=== PATIENT | female | born 1955 | race Caucasian/White ===

== ENCOUNTER 2021-04-03 06:09 | Outpatient (REF) | payer OTHER, SELFPAY ==
[2021-04-03 12:04] LABS: Cholesterol 198 mg/dL; Glucose Fasting 103 mg/dL (60-99); HDL Cholesterol 92 mg/dL; LDL Cholesterol Calculated 97 mg/dl; Triglycerides 48 mg/dL
[2021-04-03 12:09] LABS: Vitamin D 25-OH Total 53.4 ng/mL (>30)
== END 2021-04-03 06:10 | disposition home or self-care (01) ==
LOC: HO.HMGCLDS 06:09
PROVIDERS: PCP Internal Medicine; Visit Provider Internal Medicine
DX: Z78.0 Asymptomatic menopausal state (principal); Z00.00 Encounter for general adult medical examination without abnormal findings
CPT/HCPCS: 36415; 80061; 82306; 82947

== ENCOUNTER 2022-04-07 06:16 | Outpatient (REF) | payer BC, SELFPAY ==
[2022-04-07 11:35] LABS: MANUAL DIFF FLAG NO
[2022-04-07 11:44] LABS: Basophils Percent Auto 0.6 % (0-2); Eosinophils Absolute Auto 0.1 X10*3/uL (0.0-0.4); Eosinophils Percent Auto 2.7 % (0-4); Hematocrit 40.3 % (37.0-47.0); Hemoglobin 13.4 g/dl (12.0-16.0); Imm Gran Abs Auto 0.01 X10*3/uL (0.00-0.03); Imm Gran Pct Auto 0.2 % (0.0-0.4); Lymphocytes Absolute Auto 2.1 X10*3/uL (1.2-4.9); Lymphocytes Percent Auto 40.5 % (20-40); Mean Corpuscular HGB Conc 33.3 g/dl (31.0-35.0); Mean Corpuscular Hemoglobin 28.2 pg (27.0-33.0); Mean Corpuscular Volume 84.7 fL (80.0-98.0); Monocytes Absolute Auto 0.4 X10*3/uL (0.1-1.2); Monocytes Percent Auto 7.8 % (2-11); Neutrophils Absolute Auto 2.5 x10*3/uL (2.0-8.3); Neutrophils Percent Auto 48.2 % (45-73); Platelet Count 240 X10*3/uL (160-400); Red Blood Count 4.76 X10*6/uL (4.20-5.50); Red Cell Distribution Width 13.5 % (11.0-16.0); White Blood Count 5.1 X10*3/uL (4.8-10.8)
[2022-04-07 12:14] LABS: Alanine Aminotransferase 20 U/L (0-31); Anion Gap 11 (12-20); Aspartate Amino Transferase 22 U/L (5-31); Blood Urea Nitrogen 19 mg/dL (9-16); Calcium 9.2 mg/dL (8.4-10.2); Carbon Dioxide 26 mmol/L (22-29); Chloride 107 mmol/L (96-108); Cholesterol 193 mg/dL; Estimated Glomerular Filt Rate > 60; Glucose Fasting 104 mg/dL (60-99); HDL Cholesterol 76 mg/dL; LDL Cholesterol Calculated 105 mg/dl; Potassium 4.1 mmol/L (3.3-5.1); Sodium 140 mmol/L (135-145); Triglycerides 60 mg/dL
== END 2022-04-07 06:17 | disposition home or self-care (01) ==
LOC: HO.HMGCLDS 06:16
PROVIDERS: Visit Provider Internal Medicine
DX: Z00.01 Encounter for general adult medical examination with abnormal findings (principal); M85.89 Other specified disorders of bone density and structure, multiple sites; R73.01 Impaired fasting glucose; Z78.0 Asymptomatic menopausal state
CPT/HCPCS: 36415; 80048; 80061; 82306; 84450; 84460; 85025

== ENCOUNTER 2023-05-13 07:23 | Outpatient (REF) | payer MEDICARE, SELFPAY ==
[2023-05-13 12:00] LABS: Estimated Average Glucose 108 mg/dL; Hemoglobin A1c % 5.4 %
[2023-05-13 12:20] LABS: Cholesterol 193 mg/dL; Glucose Fasting 107 mg/dL (60-99); HDL Cholesterol 77 mg/dL; LDL Cholesterol Calculated 103 mg/dl; Triglycerides 66 mg/dL
[2023-05-13 12:24] LABS: Vitamin D 25-OH Total 96.5 ng/mL (>30)
== END 2023-05-13 07:24 | disposition home or self-care (01) ==
LOC: HO.HMGCLDS 07:23
PROVIDERS: PCP Internal Medicine; Visit Provider Internal Medicine
DX: Z00.01 Encounter for general adult medical examination with abnormal findings (principal); M85.89 Other specified disorders of bone density and structure, multiple sites; R73.01 Impaired fasting glucose; Z78.0 Asymptomatic menopausal state
CPT/HCPCS: 36415; 80061; 82306; 82947; 83036

== ENCOUNTER 2024-07-12 07:41 | Outpatient (REF) | payer BC, SELFPAY ==
[2024-07-12 10:21] LABS: B Type Natriuretic Peptide < 10 pg/mL (<100)
[2024-07-12 10:27] LABS: Estimated Average Glucose 111 mg/dL; Hemoglobin A1C 129.4859 umol/L; Hemoglobin A1c % 5.5 % (<6.0); Total Hemoglobin (HGBA1C) 3494.1115 umol/L
[2024-07-12 10:39] LABS: Alanine Aminotransferase 24 U/L (0-31); Aspartate Amino Transferase 22 U/L (5-31); Cholesterol 187 mg/dL (<200); HDL Cholesterol 76 mg/dL (>40); LDL Cholesterol Calculated 96 mg/dL (<100); Triglycerides 75 mg/dL (<150); Vitamin D 25-OH Total 69.9 ng/mL (>30)
== END 2024-07-12 07:42 | disposition home or self-care (01) ==
LOC: HO.HMGCLDS 07:41
PROVIDERS: PCP Internal Medicine; Visit Provider Internal Medicine
DX: R73.01 Impaired fasting glucose (principal); M85.89 Other specified disorders of bone density and structure, multiple sites; Z13.220 Encounter for screening for lipoid disorders; Z13.1 Encounter for screening for diabetes mellitus
CPT/HCPCS: 36415; 80061; 82306; 83036; 83880; 84450; 84460

== ENCOUNTER 2024-07-28 08:40 | Outpatient (AMB) | payer BC, SELFPAY ==
--- NOTE | 2024-07-28 09:25 | A.OFFPC_ITS ---
Vital Signs 07/28/24 09:29 Height 5 ft 6 in Weight 193 lb BMI 31.1 BP 130/72 Blood Pressure Location Lt brachial Position Sitting Pulse 83 Pulse Source Pulse Oximeter Pulse Oximetry (%) 99 Oxygen Delivery Method Room Air Intake Visit Reasons: PE Intake Note: Patient is here today for a physical. Mammo 07/15/24, Colonoscopy 12/16/22, Flu already done. Contract Preparer Required: No Time Study Clerk: Not Required per policy Accompanied by: Self / Same As Patient Allergies Sulfa (Sulfonamide Antibiotics) Allergy (Unknown, Verified 07/28/24 10:12) burning sensation in mouth Medication List - Last Reconciled 07/28/24 by Naina Alvarez MD calcium carbonate (Tums) 300 mg PO BID xwbupdfducbr-Lv-vxyd-minerals (Multiple Vitamin, Womens tablet) tabs PO Tobacco use date assessed: 07/28/24 Fall risk assessment: No Falls in past year Last assessed Fall Risk: 07/28/24 Dental Screening Dental Screen Date: 07/28/24 Did you have a dental visit in the last 12 months?: Yes Did you have a dental problem in the last 6 months where you did not have access to dental care?: No Was dental information given to patient?: Patient has dentist HPI PE HPI Details 68 year old lady with history of impaire d fasting glucose, osteopenia of multiple sites, here for her physical exam. She is up-to-date with her mammogram done 07/15/24 benign findings, had her Colonoscopy 12/16/[address] Kong, with removal of a polyp and presence of internal hemorrhoids seen. She sees [facility], Dr. Weller for her routine Pap and pelvic exam, last Pap smear was done earlier this year with normal findings. 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 Osteopenia of multiple sites Cervical radiculopathy Surgical History History of dental surgery S/P thyroid biopsy Social History Housing: House Alcohol intake: current Alcohol intake frequency: holidays/special occasions only Patient Tobacco Use Status: Never used Tobacco e-Cigarette/Vaping Use: Never Used Second Hand Smoke Exposure: No service: No Current occupational status: employed Cognitive needs: No Hearing needs: No Vision needs: No Female Reproductive History Menstrual Date of last pap smear: 10/14/23 History of abnormal pap smear: No Other: sees Dr Weller Questionnaire PHQ-9 Over the last 2 weeks, how often have you been bothered by any of the following problems? 1. Little interest or pleasure in doing things: not at all 2. Feeling down, depressed, or hopeless: not at all 3. Trouble falling or staying asleep, or sleeping too much: not at all 4. Feeling tired or having little energy: not at all 5. Poor appetite or overeating: not at all 6. Feeling bad about yourself - or that you are a failure or have let yourself or your family down: not at all 7. Trouble concentrating on things, such as reading the newspaper or watching television: not at all 8. Moving or speaking so slowly that other people could have noticed. Or the opposite - being so fidgety or restless that you have been moving around a lot more than usual: not at all 9. Thoughts that you would be better off or of hurting yourself in some way: not at all Total score: 0 Depression Screening Interpretation: Negative Depression Screening Done: Yes 45683 - PHQ-9 Billing: Yes Source: Developed by Drs. Yunier Cary, Adelaida Min, Kenrick Ingram and colleagues, with an educational devon from [employer]. Thrive Questionnaire Date Thrive assessed: 07/28/24 I am a: Patient What is your living situation today?: I have a steady place to live Within the past 12 months, did the food you bought not last and you didn't have the money to get more?: Never true Within the past 12 months, did you worry whether your food would run out before you got money to buy more?: Never true Do you have trouble paying for medicines?: No Do you have trouble getting transportation to medical appointments?: No Do you have trouble paying your heating and electricity bill?: No Do you have trouble taking care of your child, family member or friend?: No Do you have trouble with day-to-day activities such as bathing, preparing meals, shopping, managing finances, etc.?: No Are you currently unemployed and looking for a job?: No Are you interested in more education?: No Please select the resources that you would like help with: None Currently or been in a relationship where the following occur: No concerns reported THRIVE Score: 0 AUDIT C Alcohol Use Questionnaire (AUDIT-C) 1. How often do you have a drink containing alcohol?: Monthly or less 2. How many drinks containing alcohol do you have on a typical day when you are drinking?: 1 or 2 3. How often do you have six or more drinks on one occasion?: Never Total Score: 1 LEANDRA-7 AMB Questionnaire LEANDRA-7 Date LEANDRA - 7 assessed: 07/28/24 Feeling nervous, anxious, or on edge: 0 = Not at all Not being able to stop or control worryin = Not at all Worrying too much about different things: 0 = Not at all Trouble relaxin = Not at all Being so restless that it is hard to sit still: 0 = Not at all Becoming easily annoyed or irritable: 0 = Not at all Feeling afraid as if something awful might happen: 0 = Not at all Total LEANDRA-7 score (0-4 normal; 5-9 mild; 10-14 moderate; 15-21 severe): 0 Source: Developed by Drs. Yunier Cary, Adelaida Min, Kenrick Ingram and colleagues, with an educational devon from [employer]. LEANDRA-7 Assessment Billing LEANDRA-7 Assessment Tool: LEANDRA-7 Assessment 84645 Review of Systems Const Denies body aches, Denies fatigue, Denies fever(s), Denies headache(s) and Denies weakness Eyes Details: sees Dr Viveros Denies change in vision, Denies eye discharge and Denies itchy eyes ENT Details: slight tenderness over left TMJ Reports Normal hearing present, Denies dizziness, Denies headache(s), Denies nasal congestion, Denies nasal discharge and Denies sore throat Card Denies chest pain, Denies lightheadedness, Denies palpitations and Denies dyspnea Resp Denies chest congestion, Denies cough, Denies dyspnea and Denies wheezing GI Denies abdominal pain, Denies change in bowel habits and Denies heartburn Denies hematuria, Denies urinary frequency, Denies dysuria and Denies urinary urgency Musc Reports no additional complaints Skin/Breast Denies breast pain, Denies breast mass, Denies lesions and Denies rash Neuro Reports Normal hearing present, Denies dizziness, Denies headache(s), Denies Sensory deficit (Neuro) and Denies weakness Psych Reports no additional complaints Endo Denies fatigue, Denies polydipsia, Denies polyuria and Denies palpitations Philip/Lymph Denies easy bruising Aller/Immun Denies itchy eyes, Denies seasonal rhinorrhea and Denies wheezing Physical exam (Primary Care) Vital Signs: Last Vital Signs Pulse 83 07/28/24 09:29 BP 130/72 07/28/24 09:29 Pulse Ox 99 07/28/24 09:29 Oxygen Delivery Method Room Air 07/28/24 09:29 BMI result Body Mass Index 31.1 Tobacco/Smoking Status: Tobacco use Status Tobacco use date assessed 07/28/24 07/28/24 09:38 Patient Tobacco Use Status Never used Tobacco 07/28/24 09:38 e-Cigarette/Vaping Use Never Used 07/28/24 09:38 PHQ-9: PHQ-9 Score PHQ-9: Total score 0 07/28/24 10:16 Depression Screening Interpretation: Negative Thrive Assessment: Date of Thrive Assessment Date Thrive assessed 07/28/24 07/28/24 09:27 Currently or been in a relationship where the following occur: No concerns reported Const General: cooperative, healthy appearing, no acute distress and alert Orientation/consciousness: patient oriented x3 Limitations: no limitations [facility] Head: Yes normal to inspection and Yes normocephalic Ears: hearing grossly normal bilaterally, external ears normal, TM's normal bilaterally and EAC's normal General nose exam: Normal external nose present and No nasal discharge present Face and sinus: Yes normal facial exam, Yes sinuses nontender and Yes face symmetric Mouth: Normal oral and palatal mucosa present, lip normal, tongue normal, oropharynx normal and moist mucous membranes Throat: Yes posterior oropharynx normal Eyes Conjunctivae: conjunctivae normal Sclerae: sclerae normal Pupils: Equal, round and reactive pupils present EOM: EOMs intact bilaterally Neck Neck: Yes full ROM and Yes no lymphadenopathy Thyroid: Thyroid normal Chest Chest palpation & inspection: normal inspection of the chest Breast/axilla inspection: normal inspection of the breasts Breast/axilla palpation: normal palpation of the breasts Resp Effort & Inspection: normal respiratory effort and able to speak in complete sentences Auscultation: clear to auscultation bilaterally Cardio Jugular venous distension: no JVD Rate: regular rate Rhythm: regular rhythm Heart sounds: S1 normal heart sound present and S2 normal heart sound present GI Inspection: Yes normal to inspection Palpation (GI): Soft to palpation Auscultation: normal bowel sounds General: Yes no CVA tenderness Back/Spine/Pelvis Back: no CVA tenderness Skin General skin exam: no rashes or lesions noted Neuro General: patient oriented x3, gait normal, moves all extremities, no focal motor deficits and CN's II-XI intact bilaterally Cranial nerves: Yes Equal, round and reactive pupils present and Yes Normal hearing present Cognition (Neuro): normal cognition Gait exam (Neuro): Normal gait present Motor exam (neuro): 5/5 motor strength present throughout Sensory Exam: No Sensory deficit (Neuro) Extrem General: Yes normal to inspection, Yes full ROM, Yes no pedal edema and Yes normal gait Psych Appearance: grossly normal and well kempt Mental Status: mental status grossly normal Speech and movement: Normal speech and movement present Affect: normal affect Attitude: cooperative Thought process: Normal thought process present Thought content: Normal thought content present Results Reviewed Results Reviewed: Laboratory Tests 07/12/24 07:45 Estimat Average Glucose 111 Hemoglobin A1c % 5.5 Name: Gena Velasquez Age/Sex: 68/F : 1955 Unit#: [id number] Attend Dr: Naina Alvarez MD Re07/12/24 Status: DEP REF Location: [facility] Disch: SPEC : [id number] MAREK: 07/12/24 STATUS: COMP REQ : [id number] RECD: 07/12/[address]: Naina Alvarez MD COMP: 07/12/249 ENTERED: 07/12/[address]: ORDERED: AST, ALT, Lipid Panel, Vitamin D 25-OH Test Result Flag Reference AST (GOT) 22 5-31 U/L ALT (GPT) 24 0-31 U/L Triglyceride 75 <150 mg/dL Desirable Triglyceride: less than 150 mg/dL Borderline High Triglyceride 150-199 mg/dL High Triglyceride: 200-499 mg/dL Very High Triglyceride: greater than or equal to 5OO mg/dL Cholesterol 187 <200 mg/dL Desirable Cholesterol: less than 200 mg/dL Borderline High Cholesterol: 200-239 mg/dL High Cholesterol: greater than 239 mg/dL LDL Calculated 96 <100 mg/dL Desirable LDL: less than 100 mg/dL Near Optimal/Above Optimal LDL: 110-129 mg/dL Borderline High LDL: 130-159 mg/dL High LDL: 160-189 mg/dL Very High LDL: greater than or equal to 190 mg/dL HDL 76 >40 mg/dL Desirable HDL: greater than 40 mg/dL Note: This HDL assay may give artificially low results in patients with liver disease. Vit D 25-OH Tot 69.9 >30 ng/mL Health Based Reference Values* < 20 ng/mL Deficient 20-30 ng/mL Insufficient > 30 ng/mL Sufficient Coding Level of Care Code Est Pt Prev Care >65y(36464) Diagnoses Annual visit for general adult medical examination with abnormal findings Z00.01 Osteopenia of multiple sites M85.89 Impaired fasting glucose R73.01 Left-sided temporomandibular joint pain-dysfunction syndrome M26.622 Benign thyroid cyst E04.1 Additional Codes LEANDRA-7 Assessment Billing - LEANDRA-7 Assessment Tool: LEANDRA-7 Assessment 53382 ([id number]) Assessment & Plan Assessment & Plan (1) Annual visit for general adult medical examination with abnormal findings: Code(s): Z00.01 - Encounter for general adult medical examination with abnormal findings Plan: Reviewed recent fasting lab results with patient. continue with regular dental visit every 6 months and regular eye exams, at least every 2 years. Take adequate calcium in diet and vitamin-D 3 at 2000 IU per cap once a day, in addition to weight-bearing exercises to help maintain good muscle tone and weight control. Instructed to do self-breast exam, and continue to get yearly mammogram, sees Dr. Weller who also does her routine Pap and pelvic exam. Up-to-date with her screening colonoscopy. Up-to-date with her vaccinations, reminded to get her shingles vaccine and COVID booster (2) Osteopenia of multiple sites: Comment: done at [facility], ordered by Dr Arce Code(s): M85.89 - Other specified disorders of bone density and structure, multiple sites Category: Medical Plan: Reminded to do regular weight-bearing exercise, take adequate calcium from dietary sources and take vitamin-D 3 supplements at least 2000 units daily (3) Impaired fasting glucose: Code(s): R73.01 - Impaired fasting glucose Category: Medical Plan: Hemoglobin A1c done lately was within normal limits at 5.5%. Continue adherence to healthy eating habits and regular exercise. (4) Left-sided temporomandibular joint pain-dysfunction syndrome: Code(s): M26.622 - Arthralgia of left temporomandibular joint Category: Medical Plan: Currently sees her dentist, wears a mouth guard may try massaging diclofenac gel to temporary area as needed (5) Benign thyroid cyst: Comment: seen by Dr Agrawal Code(s): E04.1 - Nontoxic single thyroid nodule Category: Medical Plan: Followed by Dr. Agrawal
[2024-07-28 09:29] VITALS: BP 130/72; PULSE 83; O2SAT 99; BMI 31.1
== END 2024-07-28 10:47 | disposition home or self-care (01) ==
PROVIDERS: PCP Internal Medicine; Visit Provider Internal Medicine
DX: Z00.01 Encounter for general adult medical examination with abnormal findings (principal); M85.89 Other specified disorders of bone density and structure, multiple sites; R73.01 Impaired fasting glucose; M26.622 Arthralgia of left temporomandibular joint; E04.1 Nontoxic single thyroid nodule

== ENCOUNTER → 2024-07-28 08:40 | Outpatient (BNVA) | payer BC, SELFPAY | PROVIDERS: PCP Internal Medicine; Visit Provider Internal Medicine | DX: Z00.01 Encounter for general adult medical examination with abnormal findings (principal); M85.89 Other specified disorders of bone density and structure, multiple sites; R73.01 Impaired fasting glucose; M26.622 Arthralgia of left temporomandibular joint; E04.1 Nontoxic single thyroid nodule | CPT/HCPCS: 96127 ==

== ENCOUNTER 2025-07-24 07:40 | Outpatient (REF) | payer MEDICARE, SELFPAY ==
--- OUTSIDE RECORDS SUMMARY | 2025-07-24 07:44 | XMS_ITS | Clinical Summary ---
Author Organization [facility] Address [address] [place] [address] Care Team Providers Care Artistic Associate Name Role Phone Naina Alvarez MD Primary Care Provider [phone] Allergies Active Allergy Reactions Criticality Noted Date Comments Sulfa Antibiotics 05/05/2017 Burning in mouth Medications Medication Sig Dispensed Refills Start Date End Date Status ALPRAZolam (XANAX) 0.25 MG tablet Take 0.25 mg by mouth. 0 Active Multiple Vitamins-Minerals (CENTRUM SILVER 50+WOMEN) TABS Take by mouth. 0 Active cholecalciferol (VITAMIN D3) 1000 units tablet Take 1,000 Units by mouth daily. 0 Active Immunizations Name Administration Dates Next Due Covid-19 (Pfizer) Dilution Required 07/15/2021,0 11/05/2020,10/16/2020 Family History Medical History Relation Name Comments Cancer Mother 91 Vaginal cancer Mother 91 2 episodes Vu lvular 1st Tx surgically (2008) 2nd episode radiation Tx (2016) Colon cancer Neg Hx Endometrial cancer Neg Hx Ovarian cancer Neg Hx Relation Name Status Comments Brother N/A Mother 91 Alive Sister N/A Social History Tobacco Use Types Packs/Day Years Used Date Smoking Tobacco: Never Smokeless Tobacco: Never Alcohol Use Standard Drinks/Week Comments Yes 1 (1 standard drink = 0.6 oz pur e alcohol) weekends Sex and Gender Information Value Date Recorded Sex Assigned at Female 09/30/2018 7:32 AM EST Gender Identity Female 06/14/2020 7:23 AM EDT Sexual Orientation Not on file Job Start Date Occupation Industry Not on file Not on file Not on file Last Filed Vital Signs Vital Sign Reading Time Taken Comments Blood Pressure 146/87 03/04/2018 2:34 PM EDT Pulse 111 03/04/2018 2:34 PM EDT Temperature - - Respiratory Rate - - Oxygen Saturation - - Inhaled Oxygen Concentration - - Weight 75.8 kg (167 lb) 03/04/2018 2:34 PM EDT p er pt Height 167.6 cm (5' 6 ) 03/04/2018 2:34 PM EDT p er pt Body Mass Index 26.95 03/04/2018 2:34 PM EDT Plan of Treatment Health Maintenance Due Date Last Done Comments Hepatitis C Screening 1955 Depression Screening 1968 Preventative Health Evaluation 1974 DTap / Tdap / Td (1 - Tdap) 1975 Colon Cancer Screening (Colonoscopy) 2001 Shingrix-Zoster Vaccine (1 of 2) 2006 Fall Risk Assessment 2021 Pneumococcal Vaccine (1 of 1 - PCV) 2021 Osteoporosis Screening (DEXA Scan) 06/18/2023 06/18/2021, 05/22/2016 COVID-19 Vaccine (2024- season) 2025 07/15/2021, 11/05/2020, 10/16/2020 Influenza Vaccine (#1) 2025 Breast Cancer Screening (Mammogram) 07/06/2025 07/06/2023, 07/03/2022, 06/18/2021, Additional history exists RSV Adult > 60+ Yrs or (1 - 1-dose 75+ series) 2031 Hepatitis B Vaccines Aged Out No long er eligible based on patient's age to complete this topic RSV Ped < 20 months Aged Out No longe r eligible based on patient's age to complete this topic Care Teams Artistic Associate Relationship Specialty Start Date End Date Naina Alvarez MD [address] [place] [address] PCP - General Internal Medicine 02/19/15
--- OUTSIDE RECORDS SUMMARY | 2025-07-24 07:44 | XMS_ITS | Clinical Summary ---
Author Organization [facility] Address [address] [address] Phone Care Team Providers Care Enterprise Project Manager Name Role Phone Pcp, Unknown Primary Care Provider Unavailabl e Social History Tobacco Use Types Packs/Day Years Used Date Smoking Tobacco: Never Assessed Education Answer Date Recorded Are you interested in more education? Not on yaquelin e 02/07/2023 Are you concerned about learning? Not on file 02/07/2023 No 02/07/2023 No 02/07/2023 Digital Access Answer Date Recorded No 03/10/2023 No 03/10/2023 Reliable internet access at home? Not on file 03/10/2023 Device with a working camera? Not on file Comments Unknown Sex and Gender Information Value Date Recorded Sex Assigned at Not on file Legal Sex Female 4:28 PM EST Gender Identity Not on file Sexual Orientation Not on file Plan of Treatment Not on file Medical Devices Not on file Insurance [employer] [facility] POS Care Teams Enterprise Project Manager Relationship Specialty Start Date End Date Pcp, Unknown PCP - General 10/02/21 Additional Source Comments The information contained in this document represents components of the legal health record. It is not the complete legal health record.[facility]
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
--- OUTSIDE RECORDS SUMMARY | 2025-07-24 07:44 | XMS_ITS | Clinical Summary ---
[facility] Address [address] [place] [address] Care Team Providers Care Prison Guard Supervisor Name Role Phone Naina Alvarez MD Primary Care Provider [phone] Surgical History Surgery Date Site/Laterality Comments TONSILLECTOMY PROCEDURE:TONSILLECTOMY BREAST BIOPSY 12/10/2005 Right PROCEDURE:BREAST BIOPSY;COMMENT:Benign BREAST BIOPSY 2017 Right PROCEDURE:BREAST BIOPSY;COMMENT:Benign Medical History Medical History Date Comments History of breast biopsy DX:Hist ory of breast biopsy Family history of breast can cer in mother DX:Family history of breast cancer in mother Family History Medical History Relation Name Comments Cancer Mother 91 Vaginal cancer Mother 91 2 episodes Vu lvular 1st Tx surgically (2008) 2nd episode radiation Tx (2017) Colon cancer Neg Hx Endometrial cancer Neg Hx Ovarian cancer Neg Hx Relation Name Status Comments Brother N/A Mother 91 Alive Sister N/A Social History Tobacco Use Types Packs/Day Years Used Date Smoking Tobacco: Never Smokeless Tobacco: Never Alcohol Use Standard Drinks/Week Comments Yes 1 (1 standard drink = 0.6 oz pur e alcohol) Comments Unknown Sex and Gender Information Value Date Recorded Sex Assigned at Not on file Legal Sex Female 2:24 PM EST Gender Identity Not on file Sexual Orientation Not on file Obstetrics History Plan of Treatment Health Maintenance Due Date Last Done Comments Colorectal Cancer Screening: Colonoscopy 1956 DTaP,Tdap,and Td Vaccines (1 - Tdap) 1975 Pneumococcal Vaccine: 50+ Years (1 of 1 - PCV) 2006 Zoster Vaccines (1 of 2) 2006 Falls Risk Assessment 09/10/2022 Hepatitis C Screening 09/10/2022 Social Influencers of Health Screening 09/10/2022 Depression Screening 10/12/2024 COVID-19 Vaccine ( season) 2025 07/15/2021, 11/05/2020, 10/16/2020 Influenza Vaccine (#1) 2025 Breast Cancer Screening 07/06/2025 07/06/20 23, 07/03/2022, 06/18/2021, Additional history exists Osteoporosis Screening (Bone Density Screening) 06/18/2031 06/18/2021 RSV Immunization Adult Patients (1 - 1-dose 75+ series) 2031 HIB Vaccines Aged Out No longer eligi ble based on patient's age to complete this topic HPV Vaccines Aged Out No longer eligi ble based on patient's age to complete this topic Hepatitis A Vaccines Aged Out No long er eligible based on patient's age to complete this topic Hepatitis B Vaccines Aged Out No long er eligible based on patient's age to complete this topic IPV Vaccines Aged Out No longer eligi ble based on patient's age to complete this topic MMR Vaccines Aged Out No longer eligi ble based on patient's age to complete this topic Meningococcal ACWY Vaccine Aged Out N o longer eligible based on patient's age to complete this topic Meningococcal B Vaccine Aged Out No l onger eligible based on patient's age to complete this topic RSV Immunization Patients Under 20 months Aged Out No longer eligible based on patient's age to complete this topic Varicella Vaccines Aged Out No longer eligible based on patient's age to complete this topic Procedures Procedure Name Priority Date/Time Associated Diagnosis Comments MAMMOGRAM SCREENING BILATERAL 3D JEANETTE WITH CAD Routine 07/06/2023 11:45 AM EDT Encounter for screening mammogram for malignant neoplasm of breast BONE DENSITY STUDY Routine 06/18/2021 8: 25 AM EDT Asymptomatic menopausal state from Last 3 Months or Most Recently Relevant to Health Maintenance Results * MAMMOGRAM SCREENING BILATERAL 3D JEANETTE WITH CAD (07/06/2023 11:45 AM EDT) Anatomical Region Laterality Modality Mammography 05/05/2023 11:0 2 AM EDT Narrative 07/06/2023 11:55 AM EDT This is a summary report. The complete report is available in the patient's medical record. If you cannot access the medical record, please contact the sending organization for a detailed fax or copy. EXAM PERFORMED: MAMMOGRAM SCREENING BILATERAL 3D JEANETTE WITH CAD EXAM HISTORY: Routine screening. No palpable abnormality. History of benign right breast biopsy. COMPARISON: Mammograms from 2021, 2020, 2019 TECHNIQUE: Full field digital mammography synthesized (2-D) and Tomosynthesis (3-D) was performed using standard CC and MLO projections. FINDINGS: No suspicious masses, groups of microcalcification or areas of architectural distortion are identified. Stable parenchymal pattern with typically benign asymmetries and calcifications. Biopsy marker clip again seen in the central right breast at mid depth. No axillary lymphadenopathy. BREAST DENSITY: Category B. There are scattered fibroglandular densities (approximately 25-50% glandular). IMPRESSION: 1. No mammographic evidence of malignancy. Stable exam. 2. Scattered fibroglandular densities The results of this examination have been communicated to the patient through a lay letter in accordance with the Mammography Quality Standards Act. BI-RADS Category 2: Benign RECOMMENDATION: Routine annual screening mammography is recommended in 12 months SESSION: This study was performed and interpreted in separate sessions. Report reviewed and signed by : Dr. Liliam Sharma MD on 07/06/2023 11:55 AM. Workstation Name - [id number] Procedure Note Liliam Sharma MD - 11/17/2023 This is a summary report. The complete report is available in thepatient's medical record. If you cannot access the medical record, pleasecontact the sending organization for a detailed fax or copy. EXAM PERFORMED: MAMMOGRAM SCREENING BILATERAL 3D JEANETTE WITH CAD EXAM HISTORY: Routine screening. No palpable abnormality. History ofbenign right breast biopsy. COMPARISON: Mammograms from 2021, 2020, 2019 TECHNIQUE: Full field digital mammography synthesized (2-D) andTomosynthesis (3- D) was performed using standard CC and MLO projections. FINDINGS: No suspicious masses, groups of microcalcification or areas ofarchitectural distortion are identified. Stable parenchymal pattern withtypically benign asymmetries and calcifications. Biopsy marker clip againseen in the central right breast at mid depth. No axillary lymphadenopathy. BREAST DENSITY: Category B. There are scattered fibroglandular densities(approximately 25-50% glandular). IMPRESSION: 1. No mammographic evidence of malignancy. Stable exam. 2. Scattered fibroglandular densities The results of this examination have been communicated to the patientthrough a lay letter in accordance with the Mammography Quality StandardsAct. BI-RADS Category 2: Benign RECOMMENDATION: Routine annual screening mammography is recommended in 12months SESSION: This study was performed and interpreted in separate sessions. Report reviewed and signed by : Dr. Liliam Sharma MD on 07/06/2023 11:55AM. Workstation Name - [id number] Lo Harris MD IMG BI PROCEDURES Final Resu lt * BONE DENSITY STUDY (06/18/2021 8:25 AM EDT) Anatomical Region Laterality Modality Bone Densitometr y 01/18/2021 11:5 7 AM EDT Narrative 06/18/2021 10:57 AM EDT EXAM PERFORMED: Bone density study DEXA EXAM HISTORY: Postmenopausal screening. Post-menopausal TECHNIQUE: HoloStyleFeeder system utilized for DEXA images Findings: LUMBAR SPINE: Bone mineral density (BMD) measured from L1-L4 is 0.907 g/cm2. This correlates with a Z-score of 0.5 and a T-score of -1.3. LEFT HIP: Bone mineral density (BMD) measured in the total hip is 0.739 g/cm2. This correlates with a Z-score of -0.5 and a T-score of -1.7. IMPRESSION: 1. Lumbar spine: Osteopenia. 2. Hip: Osteopenia. No significant change in bone density compared to the prior study from 2016. FRAX 10 year fracture risk: Major osteoporotic fracture 15% Hip fracture 1.7% PLEASE NOTE: 1) The World Health Organization defines low BMD as follows: T-score Normal > -1 Osteopenia < -1 and > -2.5 Osteoporosis < -2.5 without fractures Established osteoporosis < -2.5 with fractures 2) In general, you may wish to consider: Diagnosis Treatment Follow-up DEXA Normal BMD Prevention 2-3 years Osteopenia Prevention/therapy 1-2 years Osteoporosis Therapy Yearly 3) Fracture risk estimated from the T-score is more accurate for vertebral fractures (often spontaneous) than for hip fractures. 4) The next DEXA scan of this patient should include the following sites: Lumbar spine, hip. Session: Separate Report reviewed and signed by : Dr. Liliam Sharma MD on 06/18/2021 10:57 AM. Workstation Name - [id number] Procedure Note Liliam Sharma MD - 10/02/2022 EXAM PERFORMED: Bone density study DEXA EXAM HISTORY: Postmenopausal screening. Post-menopausal TECHNIQUE: Hologic system utilized for DEXA images Findings: LUMBAR SPINE: Bone mineral density (BMD) measured from L1-L4 is 0.907 g/cm2. This correlates with a Z-score of 0.5 and a T-score of -1.3. LEFT HIP: Bone mineral density (BMD) measured in the total hip is 0.739 g/cm2. This correlates with a Z-score of -0.5 and a T-score of -1.7. IMPRESSION: 1. Lumbar spine: Osteopenia. 2. Hip: Osteopenia. No significant change in bone density compared to the prior study [id number]. FRAX 10 year fracture risk: Major osteoporotic fracture 15% Hip fracture 1.7% PLEASE NOTE: 1) The World Health Organization defines low BMD as follows: T-score Normal > -1 Osteopenia < -1 and > -2.5 Osteoporosis < -2.5 without fractures Established osteoporosis < -2.5 with fractures 2) In general, you may wish to consider: Diagnosis Treatment Follow-upDEXA Normal BMD Prevention 2-3years Osteopenia Prevention/therapy 1-2years Osteoporosis Therapy Yearly 3) Fracture risk estimated from the T-score is more accurate forvertebral fractures (often spontaneous) than for hip fractures. 4) The next DEXA scan of this patient should include the following sites:Lumbar spine, hip. Session: Separate Report reviewed and signed by : Dr. Liliam Sharma MD on 06/18/2021 10:57AM. Workstation Name - [id number] Lo Harris MD IMG DXA PROCEDURES Final Res ult from Last 3 Months or Most Recently Relevant to Health Maintenance Care Teams Prison Guard Supervisor Relationship Specialty Start Date End Date Naina Alvarez MD [address] [place] [address] [place] [address] PCP - General Internal Medicine 02/19/15
[2025-07-24 10:23] LABS: Hematocrit 41.9 % (37.0-47.0); Hemoglobin 14.0 g/dl (12.0-16.0)
[2025-07-24 10:38] LABS: Anion Gap 14 (12-20); Blood Urea Nitrogen 17 mg/dL (9-16); Calcium 9.0 mg/dL (8.4-10.2); Carbon Dioxide 24 mmol/L (22-29); Chloride 108 mmol/L (96-108); Cholesterol 192 mg/dL (<200); Estimated Glomerular Filt Rate > 60; HDL Cholesterol 74 mg/dL (>40); Potassium 3.8 mmol/L (3.3-5.1); Sodium 142 mmol/L (135-145); Triglycerides 96 mg/dL (<150)
== END 2025-07-24 07:41 | disposition home or self-care (01) ==
LOC: HO.HMGCLDS 07:40
PROVIDERS: PCP Internal Medicine; Visit Provider Internal Medicine
DX: E04.1 Nontoxic single thyroid nodule (principal); M85.89 Other specified disorders of bone density and structure, multiple sites; R73.01 Impaired fasting glucose; Z13.220 Encounter for screening for lipoid disorders; Z13.6 Encounter for screening for cardiovascular disorders
CPT/HCPCS: 36415; 80048; 80061; 82306; 85014; 85018

== ENCOUNTER 2025-08-01 07:48 | Outpatient (AMB) | payer BC, SELFPAY ==
--- OUTSIDE RECORDS SUMMARY | 2025-08-01 07:54 | XMS_ITS | Clinical Summary ---
Author Organization [facility] Address [address] [address] Phone Care Team Providers Care Check Processor Name Role Phone Pcp, Unknown Primary Care [...] Medical Devices Not on file [place] [facility] [place] [facility] POS [facility] POS Care Teams Check Processor Relationship Specialty Start Date End Date Pcp, Unknown PCP - General 10/02/21 Additional Source Comments The information contained in this document represents components of the legal health record. It is not the complete legal health record.[facility]
--- OUTSIDE RECORDS SUMMARY | 2025-08-01 07:54 | XMS_ITS | Clinical Summary ---
Author Organization [facility] Address [address] [place] [address] Care Team Providers Care Supervisor [employer] Name Role Phone Naina Alvarez MD Primary Care Provider [phone] Allergies Active Allergy Reactions Criticality Noted Date [...] age to complete this topic Care Teams Supervisor [employer] Relationship Specialty Start Date End Date Naina Alvarez MD [address] [place] [address] PCP - General Internal Medicine 02/19/15
--- OUTSIDE RECORDS SUMMARY | 2025-08-01 07:54 | XMS_ITS ---
[facility] Name [facility] Encounters Encounter Type Encounter Reason Primary Diagnosis Location Date Ambulatory Encounter for screening mammogram for malignant neoplasm of breast Encounter for screening mammogram for malignant neoplasm of breast [facility] 07/06/2023 Care Team Organization Name Specialty Phone Email Start Date End Da te [facility] 3 02/24/2025 [facility] MARIMAR REY Primary Care 07/06/2023 07/06/2023
--- OUTSIDE RECORDS SUMMARY | 2025-08-01 07:54 | XMS_ITS | Patient Health Record ---
Author Organization [facility] n[facility] Address [address] [place] [address] Care Team Providers Care Esthetician Facialist Name Role Phone Antonio SPAIN, Naina Aceves Primary Care Provider Un available Black, Eugenia Unavailable [phone] Allergies Allergen (clinical drug ingredient) Drug/Non Drug [...] W/U Status Risk Notes Problem Plantar wart (70467875) Plantar wart (B07.0) Active confirmed Vital Signs Blood pressure diastolic 75 mm Hg 03/02/2025 Height 5ft6in in 03/02/2025 Blood pressure systolic 125 mm Hg 03/02/2025 Weight 193 lbs 03/02/2025 BMI 31.15 kg/m2 03/02/2025 Procedures Procedure Date Ordered Date Performed Result Body Sit e 59421-SWQFMLM NAIL, 1-08/25/2024 N/A 48068-Azlp Destruction, -08/25/2024 N/A 58127-BKNRFOD NAIL, 1-03/02/2025 N/A 76476-Nofr Destruction, -03/02/2025 N/A Encounters Encounter Location Date Provider Diagnosis [facility] [address] [address] 08/25/2024 Eugenia Black Tinea unguium B35.1 ; Plantar wart B07.0 ; Pain in left toe(s) M79.675 ; Pain in right toe(s) M79.674 and Right foot pain M79.[address] [facility] [address] 03/02/2025 Eugenia Black Tinea unguium B35.1 ; [...] (LFT) 05/31/2012 *Liver Function Test (LFT) 06/07/2012 96335-JWWWMAD NAIL, -08/25/2024 16167-SQZHOET NAIL, -03/02/2025 56727-XUNONWA NAIL, -08/27/2023 72307-VVWEGJY NAIL, 10-1602/25/2024 98800-Ezwk Destruction, 10-2502/25/2024 48123-Tzzt Destruction, 10-2508/27/2023 95640-Euxj Destruction, 10-2503/02/2025 36759-Rtxd Destruction, 10-2508/25/2024 57315-Qfndbxxf Plate 02/17/2023 59845- Debride <25 sq cm 04/17/2017 97828-Ywun. Subungual Hematoma 7 Next Appt Details Provider Name:Eugenia Maya , 09/11/2025 10:00:00 AM, [address] [place], [address], Insurance Providers Payer Name Payer Address Payer Phone Subscriber Number Group Number Insured Name Patient Relationship to Insured Coverage Start Date Coverage End Date [facility] 65 Medicare [address] [place] [address] [phone] [id number] Gena Velasquez Self - patient is the insured Medical (General) History Medical History History ICD Code measles chicken pox Back,Hip,and Knee pain Broken bones Surgical History Surgery Date(Month/Year) tonsillectomy 1960 s teeth extraction 1969 implant 2014 Tooth extraction - dental implant 02/02 Hospitalization History Reason Date(Month/Year) Colonscopy 12/2022 [facility] [place]
--- NOTE | 2025-08-01 07:56 | MHC.PC.OV ---
Vital Signs 08/01/25 08:04 Height 5 ft 6 in Weight 192 lb BMI 31.0 BP 120/70 Blood Pressure Location Rt brachial Position Sitting Respiration 15 Temp 98.3 F Intake Visit Reasons: PE Intake Note: Pt is here today for her PE: Last mammogram 01/26/25, colonoscopy 12/16/22 Specification Writer Required: No Allergies Sulfa (Sulfonamide Antibiotics) Allergy (Unknown, Verified 08/01/25 08:20) burning sensation in mouth Medication List - Last Reconciled 08/01/25 by Naina Alvarez MD calcium carbonate (Tums) 300 mg PO BID dnuhveqznxeu-Lo-rxfx-minerals (Multiple Vitamin, Womens tablet) tabs PO Tobacco use date assessed: 08/01/25 Fall risk assessment: No Falls in past year Dental Screening Dental Screen Date: 08/01/25 Did you have a dental visit in the last 12 months?: Yes Did you have a dental problem in the last 6 months where you did not have access to dental care?: No Was dental information given to patient?: Patient has dentist HPI PE HPI Details The patient is a 69-year-old female here today for physical exam The patient has a history of a precancerous tubular adenoma, identified during a colonoscopy in 2022, which necessitates surveillance colonoscopy every five years. Recently contracted mild COVID-19 infection after a recent vacation, despite being vaccinated. Symptoms included nasal congestion and a faint positive test result, with the infection resolving without significant complications. The patient reports an elevated blood glucose level of 120 mg/dL, the highest recorded for her, despite maintaining a low-carbohydrate diet and increased physical activity. The patient attributes the elevated level to dietary intake prior to testing and plans to recheck in six months. The patient has a persistent issue with postnasal drip, which is associated with reflux symptoms. She manages these symptoms with zznx-tau-epqqnwd medications such as Tums and Pepcid, which provide temporary relief. The patient has a chronic fungal infection of the toenails, managed with xsfn-vtn-dhyvecp treatments and regular trimming by a bean viner. Up-to-date with her screening mammogram, which showed presence of calcifications, had a biopsy of breast done which showed benign findings, and is due for a repeat left breast mammogram in six-months together with magnification views. She sees Dr. Weller at [facility] for her routine Pap and pelvic exam which is currently up-to-date and also ordered her bone density scan which showed presence of osteopenia, no history of fractures. She is also up-to-date with all vaccinations [facility] Medical History History of adenomatous polyp of colon Positive colorectal cancer screening using Cologuard test Left-sided temporomandibular joint pain-dysfunction syndrome Benign thyroid cyst Osteopenia of multiple sites Cervical radiculopathy Surgical History History of dental surgery S/P thyroid biopsy Social History Housing: House Alcohol intake: current Alcohol intake frequency: holidays/special occasions only Patient Tobacco Use Status: Never used Tobacco e-Cigarette/Vaping Use: Never Used Second Hand Smoke Exposure: No service: No Current occupational status: employed Cognitive needs: No Hearing needs: No Vision needs: No Questionnaire PHQ-9 Over the last 2 weeks, how often have you been bothered by any of the following problems? 1. Little interest or pleasure in doing things: not at all 2. Feeling down, depressed, or hopeless: not at all 3. Trouble falling or staying asleep, or sleeping too much: not at all 4. Feeling tired or having little energy: not at all 5. Poor appetite or overeating: not at all 6. Feeling bad about yourself - or that you are a failure or have let yourself or your family down: not at all 7. Trouble concentrating on things, such as reading the newspaper or watching television: not at all 8. Moving or speaking so slowly that other people could have noticed. Or the opposite - being so fidgety or restless that you have been moving around a lot more than usual: not at all 9. Thoughts that you would be better off or of hurting yourself in some way: not at all Total score: 0 Depression Screening Interpretation: Negative Depression Screening Done: Yes 33678 - PHQ-9 Billing: Yes Source: Developed by Drs. Yunier Cary, Adelaida Min, Kenrick Ingram and colleagues, with an educational devon from [employer]. Thrive Questionnaire Date Thrive assessed: 07/25/25 I am a: Patient What is your living situation today?: I have a steady place to live Within the past 12 months, did the food you bought not last and you didn't have the money to get more?: Never true Within the past 12 months, did you worry whether your food would run out before you got money to buy more?: Never true Do you have trouble paying for medicines?: No Do you have trouble getting transportation to medical appointments?: No Do you have trouble paying your heating and electricity bill?: No Do you have trouble taking care of your child, family member or friend?: No Do you have trouble with day-to-day activities such as bathing, preparing meals, shopping, managing finances, etc.?: No Are you currently unemployed and looking for a job?: No Are you interested in more education?: No Please select the resources that you would like help with: None Currently or been in a relationship where the following occur: No concerns reported THRIVE Score: 0 AUDIT C Alcohol Use Questionnaire (AUDIT-C) 1. How often do you have a drink containing alcohol?: Never Total Score: 0 LEANDRA-7 AMB Questionnaire LEANDRA-7 Date LEANDRA - 7 assessed: 08/01/25 Feeling nervous, anxious, or on edge: 0 = Not at all Not being able to stop or control worryin = Not at all Worrying too much about different things: 0 = Not at all Trouble relaxin = Not at all Being so restless that it is hard to sit still: 0 = Not at all Becoming easily annoyed or irritable: 0 = Not at all Feeling afraid as if something awful might happen: 0 = Not at all Total LEANDRA-7 score (0-4 normal; 5-9 mild; 10-14 moderate; 15-21 severe): 0 Source: Developed by Drs. Yunier Cary, Adelaida Min, Kenrick Ingram and colleagues, with an educational devon from [employer]. LEANDRA-7 Assessment Billing LEANDRA-7 Assessment Tool: LEANDRA-7 Assessment 11027 Review of Systems Const Denies body aches, Denies fatigue, Denies fever(s), Denies headache(s) and Denies weakness Eyes Details: sees Dr Viveros Denies change in vision, Denies eye discharge and Denies itchy eyes ENT Details: slight tenderness over left TMJ Reports Normal hearing present, Denies dizziness, Denies headache(s), Denies nasal congestion, Denies nasal discharge and Denies sore throat Card Denies chest pain, Denies lightheadedness, Denies palpitations and Denies dyspnea Resp Denies chest congestion, Denies cough, Denies dyspnea and Denies wheezing GI Denies abdominal pain, Denies change in bowel habits and Denies heartburn Denies hematuria, Denies urinary frequency, Denies dysuria and Denies urinary urgency Musc Reports no additional complaints Skin/Breast Denies breast pain, Denies breast mass, Denies lesions and Denies rash Neuro Reports Normal hearing present, Denies dizziness, Denies headache(s), Denies Sensory deficit (Neuro) and Denies weakness Psych Reports no additional complaints Endo Denies fatigue, Denies polydipsia, Denies polyuria and Denies palpitations Philip/Lymph Denies easy bruising Aller/Immun Denies itchy eyes, Denies seasonal rhinorrhea and Denies wheezing Physical exam (Primary Care) Vital Signs: Last Vital Signs Temp 98.3 F 08/01/25 08:04 Resp 15 08/01/25 08:04 BP 120/70 08/01/25 08:04 BMI result Body Mass Index 31.0 Tobacco/Smoking Status: Tobacco use Status Tobacco use date assessed 08/01/25 08/01/25 07:57 Patient Tobacco Use Status Never used Tobacco 08/01/25 07:57 e-Cigarette/Vaping Use Never Used 08/01/25 07:57 PHQ-9: PHQ-9 Score PHQ-9: Total score 0 08/01/25 08:49 Depression Screening Interpretation: Negative Thrive Assessment: Date of Thrive Assessment Date Thrive assessed 07/25/25 08/01/25 07:57 Currently or been in a relationship where the following occur: No concerns reported Advance Care Planning discussion: Completed/Scanned Date of discussion: 08/01/25 Who was present: Patient Forms completed: Health Care Proxy Time spent: 16-45 minutes Actual minutes spent: 2 Const General: cooperative, healthy appearing, no acute distress and alert Orientation/consciousness: patient oriented x3 HENMT Head: Yes normal to inspection and Yes normocephalic Ears: hearing grossly normal bilaterally, external ears normal, TM's normal bilaterally and EAC's normal General nose exam: Normal external nose present and No nasal discharge present Face and sinus: Yes normal facial exam, Yes sinuses nontender and Yes face symmetric Mouth: Normal oral and palatal mucosa present and moist mucous membranes Throat: Yes posterior oropharynx normal Eyes Conjunctivae: conjunctivae normal Sclerae: sclerae normal Pupils: Equal, round and reactive pupils present EOM: EOMs intact bilaterally Neck Neck: Yes full ROM and Yes no lymphadenopathy Thyroid: Thyroid normal Chest Chest palpation & inspection: normal inspection of the chest Breast/axilla inspection: normal inspection of the breasts Breast/axilla palpation: normal palpation of the breasts Resp Effort & Inspection: normal respiratory effort and able to speak in complete sentences Auscultation: clear to auscultation bilaterally Cardio Jugular venous distension: no JVD Rate: regular rate Rhythm: regular rhythm Heart sounds: S1 normal heart sound present and S2 normal heart sound present GI Inspection: Yes normal to inspection Palpation (GI): Soft to palpation Auscultation: normal bowel sounds General: Yes no CVA tenderness Back/Spine/Pelvis Back: no CVA tenderness Skin General skin exam: no rashes or lesions noted Neuro General: patient oriented x3, gait normal, moves all extremities, no focal motor deficits and CN's II-XI intact bilaterally Cranial nerves: Yes Equal, round and reactive pupils present and Yes Normal hearing present Cognition (Neuro): normal cognition Gait exam (Neuro): Normal gait present Motor exam (neuro): 5/5 motor strength present throughout Sensory Exam: No Sensory deficit (Neuro) Extrem General: Yes normal to inspection, Yes full ROM, Yes no pedal edema and Yes normal gait Psych Appearance: grossly normal and well kempt Mental Status: mental status grossly normal Speech and movement: Normal speech and movement present Affect: normal affect Results Reviewed Results Reviewed: Laboratory Tests 07/24/25 07:45 Hgb 14.0 Hct 41.9 Name: Gena Velasquez Age/Sex: 69/F : 1955 Unit#: [id number] Attend Dr: Naina Alvarez MD Re07/24/25 Status: DEP REF Location: [facility] Disch: SPEC : [id number] MAREK: 07/24/25 STATUS: COMP REQ : [id number] RECD: 07/24/[address] [facility] DR: Naina Alvarez MD COMP: 07/24/25 ENTERED: 07/24/[address] [facility] [address]: ORDERED: Met Prof Fast, Lipid Panel, Vitamin D 25-OH Test Result Flag Reference Sodium 142 135-145 mmol/L Potassium 3.8 3.3-5.1 mmol/L CL 108 96-108 mmol/L CO2 24 22-29 mmol/L Gap 14 12-20 BUN 17 H 9-16 mg/dL Creat 0.79 0.5-1.4 mg/dL eGFR > 60 Chronic Kidney Disease: Estimated GFR < 60 mL/min/1.73m2 Severe Kidney Disease: Estimated GFR < 15 mL/min/1.73m2 FBS 120 H 60-99 mg/dL A fasting glucose from 100-125 mg/dl is considered impaired (pre-diabetes). CA 9.0 8.4-10.2 mg/dL Triglyceride 96 <150 mg/dL Desirable Triglyceride: less than 150 mg/dL Borderline High Triglyceride 150-199 mg/dL High Triglyceride: 200-499 mg/dL Very High Triglyceride: greater than or equal to 5OO mg/dL Cholesterol 192 <200 mg/dL Desirable Cholesterol: less than 200 mg/dL Borderline High Cholesterol: 200-239 mg/dL High Cholesterol: greater than 239 mg/dL LDL Calculated 99 <100 mg/dL Desirable LDL: less than 100 mg/dL Near Optimal/Above Optimal LDL: 110-129 mg/dL Borderline High LDL: 130-159 mg/dL High LDL: 160-189 mg/dL Very High LDL: greater than or equal to 190 mg/dL HDL 74 >40 mg/dL Desirable HDL: greater than 40 mg/dL Note: This HDL assay may give artificially low results in patients with liver disease. Vitamin D 25-OH 58.0 >30 ng/mL Health Based Reference Values* < 20 ng/mL Deficient 20-30 ng/mL Insufficient > 30 ng/mL Sufficient Coding Level of Care Code Est Pt Prev Care >65y(72237) Diagnoses Impaired fasting glucose R73.01 History of adenomatous polyp of colon Z86.010 Osteopenia of multiple sites M85.89 Advance directive discussed with patient Z71.89 Annual visit for general adult medical examination with abnormal findings Z00.01 Additional Codes PHQ-9 - 21138 - PHQ-9 Billing: Yes ([id number]) LEANDRA-7 Assessment Billing - LEANDRA-7 Assessment Tool: LEANDRA-7 Assessment 97460 ([id number]) Vital Signs *Quality* - Advance Care Planning discussion: Completed/Scanned ([id number]) Vital Signs *Quality* - Time spent: 16-45 minutes ([id number]) Assessment & Plan Assessment & Plan (1) Impaired fasting glucose: Code(s): R73.01 - Impaired fasting glucose Category: Medical Plan: Your previous fasting blood sugars were elevated above 100 mg/dL. Impaired glucose metabolism increases the risk for developing diabetes mellitus type 2, as well as heart attack and stroke later on. Lifestyle changes that promotes weight loss, healthy eating habits, and regular exercise are important, and can prevent the progression to diabetes (2) History of adenomatous polyp of colon: Code(s): Z86.010 - Personal history of colon polyps Category: Medical Plan: Repeat colonoscopy due again in 2027 (3) Osteopenia of multiple sites: Comment: done at [facility], ordered by Dr Arce Code(s): M85.89 - Other specified disorders of bone density and structure, multiple sites Category: Medical Plan: Advised to continue taking vitamin-D 3 supplements at least 2000 units daily and adequate calcium from dietary sources and supplements. Reinforced importance of doing regular weight-bearing exercise to strengthen bones and prevent further progression of bone thinning. (4) Advance directive discussed with patient: Code(s): Z71.89 - Other specified counseling Plan: Initiated the conversation about Advanced Directives. Advanced Directives help patients prepare for current and future decisions about their medical treatment and place of care. Discussed with patient that it is a process where a patients current condition and prognosis are reviewed, their wishes for information regarding their illness are elicited, and likely medical dilemmas are presented and options discussed. Healthcare proxy form completed today. The form can be amended as needed, reviewed yearly and make changes as needed (5) Annual visit for general adult medical examination with abnormal findings: Code(s): Z00.01 - Encounter for general adult medical examination with abnormal findings Plan: Reviewed recent fasting lab results with patient.. Recommended dental visit every 6 months and regular eye exams, at least every 2 years, sees Dr. Hulseberg. Take adequate calcium in diet and vitamin-D 3 at 2000 IU per cap once a day, in addition to weight-bearing exercises to help maintain good muscle tone and weight control. Up-to-date with her breast cancer screening, cervical cancer screening and colon cancer screening, up-to-date with all her vaccines Orders: Orders Glucose Fasting 6 Months R73.01 - Impaired fasting glucose Hemoglobin A1c 6 Months R73.01 - Impaired fasting glucose
[2025-08-01 08:04] VITALS: BP 120/70; RESP 15; TEMP 36.8; BMI 31.0
== END 2025-08-01 09:25 | disposition home or self-care (01) ==
LOC: HO.HMCC 07:49
PROVIDERS: PCP Internal Medicine; Visit Provider Internal Medicine
DX: Z00.01 Encounter for general adult medical examination with abnormal findings (principal); R73.01 Impaired fasting glucose; Z86.0100 Personal history of colon polyps, unspecified; M85.89 Other specified disorders of bone density and structure, multiple sites; Z71.89 Other specified counseling

== ENCOUNTER → 2025-08-01 07:48 | Outpatient (BNVA) | payer BC, SELFPAY | PROVIDERS: PCP Internal Medicine; Visit Provider Internal Medicine | DX: Z00.01 Encounter for general adult medical examination with abnormal findings (principal); R73.01 Impaired fasting glucose; M85.89 Other specified disorders of bone density and structure, multiple sites; Z86.0101 Personal history of adenomatous and serrated colon polyps; Z71.89 Other specified counseling; Z13.31 Encounter for screening for depression; Z13.39 Encounter for screening examination for other mental health and behavioral disorders | CPT/HCPCS: 96127 ==